=== PATIENT | male | born 1955 | race Caucasian/White ===

== ENCOUNTER 2018-04-26 21:43 | Emergency (ER) | payer OTHER ==
[2018-04-26 21:57] VITALS: RESP 20
--- NOTE | 2018-04-26 23:24 | C.PDOC ---
History Of Present Illness 62 year old male patient presents to the ER c/o right ankle pain s/p trip and fall just prior to arrival. Patient reports he has no head trauma, change in sensation, LOC, dizziness, nausea, vomiting and light headedness. Time Seen by Provider: 04/26/18 21:58 Chief Complaint (Nursing): Lower Extremity Problem/Injury History Per: Patient History/Exam Limitations: no limitations Onset/Duration Of Symptoms: Hrs Current Symptoms Are (Timing): Still Present - Ankle/Foot Description Of Injury: Fell Past Medical History Reviewed: Historical Data, Nursing Documentation, Vital Signs Vital Signs: Last Vital Signs Temp 98.3 F 04/26/18 21:53 Pulse 87 04/26/18 21:53 Resp 20 04/26/18 21:53 BP 116/80 04/26/18 21:53 Pulse Ox 95 04/26/18 21:53 - Medical History PMH: HTN (?) Family History: States: No Known Family Hx - Social History Hx Alcohol Use: Yes Hx Substance Use: No - Immunization History Hx Tetanus Toxoid Vaccination: No Hx Influenza Vaccination: No Hx Pneumococcal Vaccination: No Review Of Systems Except As Marked, All Systems Reviewed And Found Negative. Constitutional: Negative for: Other (other injuries) Cardiovascular: Negative for: Light Headedness Gastrointestinal: Negative for: Nausea, Vomiting Musculoskeletal: Positive for: Other (R ankle pain) Neurological: Negative for: Headache, Dizziness, Other (change in sensation; LOC) Physical Exam - Physical Exam Appears: Well, Non-toxic, No Acute Distress Skin: Normal Color, Warm Head: Atraumatic, Normacephalic, No Tenderness, No Swelling Eye(s): bilateral: Normal Inspection, PERRL, EOMI Nose: Normal Oral Mucosa: Moist Throat: Normal Neck: Normal ROM, Supple Chest: Symmetrical, No Deformity Cardiovascular: Rhythm Regular Respiratory: Normal Breath Sounds Gastrointestinal/Abdominal: Soft, No Tenderness Back: No CVA Tenderness Extremity: No Normal ROM (decreased ROM secondary to pain), Tenderness (diffuse tenderness to R ankle ), Capillary Refill (<2 sec), Swelling (diffused swelling to R ankle ) Pulses: Left Dorsalis Pedis: Normal, Right Dorsalis Pedis: Normal Neurological/Psych: Oriented x3, Normal Speech, No Other (neruo deficit) ED Course And Treatment O2 Sat by Pulse Oximetry: 95 (RA) Pulse Ox Interpretation: Normal - Other Rad R ankle X-Ray: Interpreted by Me, Viewed By Me Interpretation: trimalleolar fracture - CT Scan/US CT LE Other Rad Studies (CT/US): Read By Radiologist, Radiology Report Reviewed CT/US Interpretation: Name:VIMAL HERNANDEZ Exam Date:Apr 27, 2018 2:50:43 AM EDT. Modality Type:CT\SR. Description:CT - ABDOMEN AND PELVIS STONE PROTOCOL. Gender:F Laterality:Not applicable. :[birth year] Referring Physician:SUSAN SNOW MD. EXAM: CT Abdomen and Pelvis Without IV Contrast, Renal Stone Protocol. CLINICAL HISTORY: Right flank pain. TECHNIQUE: Axial computed tomography images of the abdomen and pelvis without intravenous contrast according to a renal stone protocol. CONTRAST: No IV contrast. COMPARISON: None provided. FINDINGS: LUNG BASES: The lung bases appear clear. No pleural effusions are seen. LIVER: There is diffuse hepatic hypoattenuation compatible with fatty infiltration. The liver is enlarged, 25 cm. GALLBLADDER AND BILE DUCTS: The gallbladder appears unremarkable. No radioopaque gallstones are seen. No biliary ductal dilatation is evident. PANCREAS: Unremarkable. SPLEEN: The spleen is normal in size without focal lesion. ADRENAL GLANDS: There is a 3 x 1.8 cm right adrenal nodule is noted demonstrating 30 HU may represent a lipid poor adenoma, however further work up with MRI adrenal protocol is recommended. KIDNEYS, URETERS, AND BLADDER: No hydronephrosis, hydroureter, or urinary calculi seen. The urinary bladder appears within normal limits. STOMACH AND BOWEL: No wall thickening. No CT evidence of colitis or acute diverticulitis. No evidence of bowel obstruction. APPENDIX: No evidence of acute appendicitis on CT examination. PERITONEUM: No free fluid. No free air. LYMPH NODES: No lymphadenopathy is evident. REPRODUCTIVE: IUD is in place. 3 cm left ovarian cyst is seen. The uterus and ovaries are WNL. VASCULATURE: No abdominal aortic aneurysm. BONES: No aggressive appearing osseous lesions. No acute fracture is evident. IMPRESSION: 1. Fatty liver. The liver is enlarged, 25 cm. 2. 3 x 1.8 cm right adrenal nodule is noted demonstrating 30 HU may represent a lipid poor adenoma, however further work up with MRI adrenal protocol is recommended. 3. IUD is in place. 3 cm left ovarian cyst Progress Note: Impression: R ankle pain s/p trip and fall. plans: -- tylenol. -- XR R ankle. --CT LE. Case discussed with podiatry who evaluted pt at bedside and applied a splint and ordered CT. Pt was give discharge instructions to f/u with podiatry and [facility] . Pt verbalized understanding. Disposition - Disposition Referrals: Roxy Nunes DPM [Staff Provider] - Disposition: HOME/ ROUTINE Disposition Time: 01:02 Condition: STABLE Additional Instructions: Rest, ice and elevate the area. Do NOT put weight on it. Follow up with the foot doctor in 1-2 days. [place]a, hielo y eleva la dafne. NO ponga peso en l. Seguimiento con el mdico del pie en 1-2 byrnes. 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 - Scribe Statement The provider has reviewed the documentation as recorded by the Artemio Zimmer Do All medical record entries made by the Scribe were at my direction and personally dictated by me. I have reviewed the chart and agree that the record accurately reflects my personal performance of the history, physical exam, medical decision making, and the department course for this patient. I have also personally directed, reviewed, and agree with the discharge instructions and disposition.
--- NOTE | 2018-04-27 00:11 | CP.PCM.CON ---
History of Present Illness - History of Present Illness History of Present Illness: Podiatry consult note for Dr. Nunes, 62 year old male patient with no significant past medical history presents to the ER c/o right ankle pain s/p trip and fall. Patient states hes currently in moderate amount of pain. Patient is seen with his son. Patient is seen resting comfortably, and claims the pain medication has helped to alleviate the pain. Patient reports he has no injuries, change in sensation, LOC, headache, dizziness, nausea, vomiting and light headedness. Pmhx: none Pshx: none Allergies: none Social history: denies smoking, admits to drinking alcohol occasionally. Past Patient History - Infectious Disease Hx of Infectious Diseases: None - Past Social History Smoking Status: Light Smoker < 10 Cigarettes Daily - CARDIAC Hx Hypertension: Yes (?) - HEENT Other/Comment: [place] - GASTROINTESTINAL Hx Hemorrhoids: Yes - PSYCHIATRIC Hx Substance Use: No - SURGICAL HISTORY Other/Comment: hemorroidhectomy - ANESTHESIA Hx Anesthesia: Yes Hx Anesthesia Reactions: No Meds Home Medications: Home Medication List Medication Instructions Recorded Confirmed Type oxyCODONE/Acetaminophen [Percocet 1 tab PO TID PRN #12 tab 04/27/18 Rx 5/325 mg Tab] Allergies/Adverse Reactions: Allergies Allergy/AdvReac Type Severity Reaction Status Date / Time No Known Allergies Allergy Verified 07/17/16 17:09 Physical Exam - Constitutional Appears: Well, Non-toxic, No Acute Distress - Head Exam Head Exam: ATRAUMATIC, NORMOCEPHALIC - Extremities Exam Additional comments: Right lower extremity exam: Vascular: Dp palpable, PT nonpalpable secondary to pain and edema, edema noted perimalleolar, erythema noted on the medial aspect of the ankle and anterior aspect of the ankle joint, CFT <3 secs x5 Neuro; protective sensation intact via ipswich / Derm: no open lesions, edema noted perimalleolar and erythema noted on the medial and anterior aspect of the ankle, no clinical signs of infection Ortho: pain on palpation to the ankle joint, medial lateral and posterior aspect of the ankle joint. Decreased ROM secondary to guarding of the ankle joint. - Neurological Exam Neurological exam: Alert, Oriented x3 - Psychiatric Exam Psychiatric exam: Normal Affect - Skin Skin Exam: Normal Color Results - Vital Signs Recent Vital Signs: Last Vital Signs Temp 98.3 F 10/13/18 21:53 Pulse 87 04/26/18 21:53 Resp 20 04/26/18 21:53 BP 116/80 04/26/18 21:53 Pulse Ox 95 04/26/18 23:31 Assessment & Plan - Assessment and Plan (Free Text) Assessment: 62 yo male with no significant past medical history seen in the ED for right nakle trimalleolar fracture; mildly displaced non-dislocated. Plan: Patient seen and evaluated History and plan discussed in detail with the attending, Dr Nunes Ankle x-rays reviewed in detail with the patient- trimalleolar fracture noted on the right lower extremity, displaced and dislocated laterally. 20 cc of 1% lidocaine used to perform a proximal block on the leg. Consent for closed reduction explained and signed by patient Closed reduction of the ankle performed Patient advised to rest, ice and elevate right lower extremity Patients right lower extremity dressing with a well padded cast Patient to remain nonweight bearing to the right lower extremity with the use of crutches Patient crutch trained by the ED staff CT of the right lower extremity ordered: communited fracture of distal fibular, minimally displaced fracture of the medial malleolus Patient showed verbal understanding and all questions were answered Patient to take percocet pain prn F/u with Dr. Nunes in [place] office within a week Thank you for the consult.
[2018-04-27] MEDS ORDERED: Lidocaine 1% Inj (20ml) IV ONE (00:40)
[2018-04-27] MEDS ORDERED: Lidocaine Hydrochloride 20 ML INJ ONE (00:46)
[2018-04-27 03:19] VITALS: BP 128/78; PULSE 82; TEMP 98.2
[2018-04-27 03:48] VITALS: O2SAT 95
--- NOTE | 2018-04-27 08:47 | RAD ---
PROCEDURE: Right Ankle Radiographs. HISTORY: trauma COMPARISON: None FINDINGS: Comminuted fracture deformity of the distal fibula. Displaced fracture of the medial malleolus. Disruption of the ankle mortise. Displaced fracture of the posterior malleolus. Soft tissue swelling. No evidence of radiopaque foreign body. IMPRESSION: Comminuted fracture deformity of the distal fibula. Displaced fractures of the medial malleolus and posterior malleolus. Disruption of the ankle mortise. Soft tissue swelling.
--- NOTE | 2018-04-27 12:53 | RAD ---
PROCEDURE: Right Ankle Radiographs. HISTORY: pain COMPARISON: Right ankle radiographs performed 04/26/18 FINDINGS: BONES: Comminuted fracture deformity of the distal fibula. Displaced fracture of the medial malleolus. Posterior malleolar fracture. JOINTS: Disruption of the ankle mortise. SOFT TISSUES: Marked soft tissue swelling. No evidence of radiopaque foreign body. OTHER FINDINGS: None. IMPRESSION: Marked soft tissue swelling. Comminuted distal fibular fracture. Displaced fractures of the posterior medial malleoli. Disruption of ankle mortise.
--- NOTE | 2018-04-27 12:56 | RAD ---
PROCEDURE: Right Ankle Radiographs. HISTORY: post reduction COMPARISON: Ankle radiograph performed 04/26/18 FINDINGS: Images are obtained through a cast which obscures osseous detail. Comminuted fibular fracture, medial malleolar fracture, and posterior tibial fracture are re-identified. Alignment appears improved since prior study. IMPRESSION: Interval cast placement. Re-identified comminuted fibular fracture, medial malleolar fracture, posterior tibial fracture. Alignment appears improved since prior study.
--- NOTE | 2018-04-28 12:16 | CT ---
Date of service: 04/27/2018 PROCEDURE: HISTORY: s/p trimalleolar fracture COMPARISON: 04/27/2018 radiographs TECHNIQUE: Noncontrast FINDINGS: Cast obscures bone detail. Comminuted fracture of the distal fibula in relatively good anatomic alignment. Minimally displaced transverse fracture of the medial malleolus. Ankle mortise, midfoot and forefoot grossly intact. Diffuse circumferential soft tissue swelling. IMPRESSION: Comminuted bimalleolar fracture as discussed above.
== END 2018-04-27 03:15 | disposition home or self-care (01) ==
LOC: C.ER 21:43
DX: S82.851A Displaced trimalleolar fracture of right lower leg, initial encounter for closed fracture (principal); W01.0XXA Fall on same level from slipping, tripping and stumbling without subsequent striking against object, initial encounter; F17.210 Nicotine dependence, cigarettes, uncomplicated